=== PATIENT | female | born 1990 ===

== ENCOUNTER 2024-03-15 10:44 | Day surgery (SDC) | payer OTHER ==
[~2024-03-15] VITALS: Ht 175.3 cm; Wt 72.2 kg
[~2024-03-15 10:44] MED LIST: Lactated Ringer's 1,000 ML IV ONE; propofoL 50 ML IV ONE
[2024-03-15] MEDS ORDERED: Lactated Ringer's 1,000 ML IV ONE (11:58)
== END 2024-03-15 13:22 | disposition home or self-care (01) ==
LOC: ORSCSDS 10:44
PROVIDERS: Internal Medicine Gastroenterology
PROC: 0DJD8ZZ Inspection of Lower Intestinal Tract, Via Natural or Artificial Opening Endoscopic (ICD-10-PCS; principal; 2024-03-15 12:00)
DX: R19.4 Change in bowel habit (principal); R19.5 Other fecal abnormalities; R10.30 Lower abdominal pain, unspecified
CPT/HCPCS: J2704; J7120